=== PATIENT | female | born 1940 | race Caucasian/White ===

== ENCOUNTER → 2016-10-17 | Outpatient (CLI) | payer MEDICARE, BC ==
[~2016-10-17] MED LIST: ACIDOPHILIS PO; AMITRIPTYLINE150 MG PO; ASPIRIN 32325 MG/TAB PO; ASPIRIN 81M81 MG/TA2 PO; B-12 100 MCG PO; BACTRIM DS 8001 TAB PO; BENTYL 10MG10 MG/CAP PO; CALCIUM 500500 M1; CALCIUM 500500 M2 PO; CALCIUM 600MG+D1 TAB PO; CEPHALEXIN500 M1 PO; CRESTOR20 MG PO; DOXYCYCLINE 10100 MG PO; DOXYCYCLINE100 M2 PO; ELAVIL10 MG; ELAVIL10 MG PO; EPA FISH OIL1 SGL PO; FISH OIL1000 MG PO; FLAGYL500 MG PO; FLAXSEED OIL1 CAP PO; GERITOL COMPLET1 TA1 PO; LEVAQUIN 250MG250 MG PO; LEXAPRO; LIPITOR20 MG; LORTAB 5/500 501 TAB PO; MELOXICAM; MEVACOR; MULTIPLE VITAMI1 CAP PO; NABUMETONE500 MG PO; NAPROSYN500 MG PO; NATURAL E400 IU PO; NATURAL POTASS595 MG PO; NORCO 325 MG-51 TAB PO; NORCO 325 MG-7.1 TAB PO; OMNICEF 300MG300 MG PO; PAXIL 10MG10 MG PO; PEPTO BISMOL262 MG PO; PERCR 7.5 PO; PHENERGAN 25 TA25 MG PO; PHENERGAN25 MG RC; PLAVIX 75MG TAB75 MG PO; PRAVACHOL80 MG PO; PRILOSEC 20MG20 MG PO; PROTONIX20 MG PO; SERINE PO; SERTRALINE50 MG PO; TESSALON PERLE200 MG PO; TYLENOL 500MG500 MG PO; VITAMIN C500 MG PO; WELLBUTRIN XL300 M1 PO; ZANTAC 150MG T150 MG PO; ZITHROMAX 250M250 MG PO; ZOFRAN ODT8 MG PO; ZOLOFT 25MG25 MG PO; [UNRECOGNIZED DRUG - OTHER]
== END ==
LOC: MC.RAD 11:00
DX: Z12.31 Encounter for screening mammogram for malignant neoplasm of breast (principal)

== ENCOUNTER 2017-03-17 09:19 | Emergency (ER) | payer MEDICARE, BC ==
[~2017-03-17] VITALS: Ht 165.1 cm; Wt 72.7 kg
[~2017-03-17 09:19] MED LIST changes: -ACIDOPHILIS PO; -ASPIRIN 81M81 MG/TA2 PO; -B-12 100 MCG PO; -BACTRIM DS 8001 TAB PO; -BENTYL 10MG10 MG/CAP PO; -CALCIUM 600MG+D1 TAB PO; -CRESTOR20 MG PO; -EPA FISH OIL1 SGL PO; -FLAGYL500 MG PO; -GERITOL COMPLET1 TA1 PO; -NATURAL E400 IU PO; -NATURAL POTASS595 MG PO; -OMNICEF 300MG300 MG PO; -PAXIL 10MG10 MG PO; -PEPTO BISMOL262 MG PO; -TESSALON PERLE200 MG PO; -VITAMIN C500 MG PO; -WELLBUTRIN XL300 M1 PO; -ZANTAC 150MG T150 MG PO; -ZOFRAN ODT8 MG PO
[2017-03-17 09:31] VITALS: TEMP 97.9
[2017-03-17 10:32] LABS: BASO # 0.1 (0.0-0.2); BASO % 0.8 % (0.0-2.0); EOS # 0.2 (0.0-0.7); EOS % 1.9 % (0-4.0); GRAN # 8.5 (1.4-6.5); GRAN % 76.4 % (42.2-75.2); HEMATOCRIT 39.1 % (37.0-47.0); HEMOGLOBIN 13.3 g/dl (12.5-16.0); LYMPH # 1.4 (1.2-3.4); LYMPH % 12.1 % (20.0-51.0); MEAN CELL VOLUME 84 fl (80.0-100.0); MEAN CORPUSCULAR HEMOGLOBIN 29 pg (27.0-31.0); MEAN CORPUSCULAR HGB CONC 34 g/dl (33.0-37.0); MEAN PLATELET VOLUME 9.5 fl (7.4-10.4); MONO # 0.9 (0.1-0.6); MONO % 8.4 % (1.7-9.3); PLATELET COUNT 367 K/mm3 (130-400); RED BLOOD COUNT 4.63 M/mm3 (4.10-5.30); REDCELL DISTRIBUTION WIDTH-CV 13.1 % (11.5-14.5)
[2017-03-17 10:39] LABS: ALANINE AMINOTRANSFERASE 25 U/L (9-52); ALBUMIN 4.5 gm/dL (3.5-5.0); ALKALINE PHOSPHATASE 119 U/L (50-136); ANION GAP 11 mmol/L (7-16); AST,SGOT 25 U/L (15-37); BILIRUBIN,TOTAL 0.8 mg/dL (0.0-1.0); BLOOD UREA NITROGEN 9 mg/dL (7-17); CALCIUM 9.7 mg/dL (8.4-10.2); CARBON DIOXIDE 23 mmol/L (22-30); CHLORIDE 107 mmol/L (98-107); CREATININE, serum 0.74 mg/dL (0.52-1.25); GLUCOSE 103 mg/dL (74-106); SODIUM 140 mmol/L (137-145); TOTAL PROTEIN 7.7 gm/dL (6.4-8.2)
[2017-03-17] MEDS ORDERED: BENTYL 10MG10 MG/CAP PO (10:39)
[2017-03-17] MEDS ORDERED: NATURAL POTASS595 MG PO (10:40)
[2017-03-17 10:43] LABS: INR 1.1 (0.8-3.0); PROTHROMBIN TIME 12.6 SECONDS (9.7-12.8)
[2017-03-17 10:45] LABS: PARTIAL THROMBOPLASTIN TIME 31.3 SECONDS (26.0-37.0)
[2017-03-17 10:50] LABS: TROPONIN-I < 0.012 ng/mL (0.000-0.034)
[2017-03-17 10:51] LABS: COLLECTION METHOD CLEAN CATCH
[2017-03-17 11:01] LABS: PH 5 (5-8); SQUAMOUS EPITHELIAL 0-2 /hpf; URINE APPEARANCE Clear; URINE BACTERIA None Seen /hpf; URINE BILIRUBIN Negative (NEGATIVE); URINE BLOOD Negative (NEGATIVE); URINE COLOR Yellow; URINE GLUCOSE Negative (NEGATIVE); URINE KETONE Negative (NEGATIVE); URINE LEUKOCYTE ESTERASE Trace (NEGATIVE); URINE NITRATE Negative (NEGATIVE); URINE PROTEIN(semi-quant) Negative (NEGATIVE); URINE RBC 0-2 /hpf; URINE UROBILINOGEN Negative (NEGATIVE)
[2017-03-17] MEDS ORDERED: TESSALON PERLE200 MG PO (14:20)
[2017-03-17] MEDS ORDERED: CEPHALEXIN500 M1 PO (14:20)
[2017-03-17 15:06] VITALS: BP 158/91; PULSE 80
== END 2017-03-17 15:08 | disposition home or self-care (01) ==
LOC: COL.ER 09:19
PROVIDERS: Emergency Medicine
DX: J40 Bronchitis, not specified as acute or chronic (principal); B34.9 Viral infection, unspecified; Z86.73 Personal history of transient ischemic attack (TIA), and cerebral infarction without residual deficits; Z79.82 Long term (current) use of aspirin
CPT/HCPCS: J0696; J7030; Q9967

== ENCOUNTER → 2017-10-30 | Outpatient (CLI) | payer MEDICARE, BC ==
[~2017-10-30] MED LIST changes: +BENTYL 10MG10 MG/CAP PO; +NATURAL POTASS595 MG PO; +TESSALON PERLE200 MG PO
== END ==
LOC: MC.RAD 13:00
DX: Z12.31 Encounter for screening mammogram for malignant neoplasm of breast (principal)

== ENCOUNTER 2017-11-17 08:36 | Day surgery (SDC) | payer MEDICARE, BC ==
[~2017-11-17] VITALS: Ht 165.1 cm; Wt 72.6 kg
[2017-11-17 09:08] VITALS: BP 124/71; PULSE 91; TEMP 97.5
[2017-11-17] MEDS ORDERED: CRESTOR20 MG PO (09:15)
[2017-11-17] MEDS ORDERED: WELLBUTRIN XL300 M1 PO (09:17)
[2017-11-17] MEDS ORDERED: GERITOL COMPLET1 TA1 PO (09:19)
[2017-11-17] MEDS ORDERED: ACIDOPHILIS PO (09:20)
[2017-11-17] MEDS ORDERED: B-12 100 MCG PO ×2 (09:22→09:23)
[2017-11-17] MEDS ORDERED: PEPTO BISMOL262 MG PO (10:16)
[2017-11-17] MEDS ORDERED: ZANTAC 150MG T150 MG PO (10:17)
[2017-11-17 10:25] VITALS: BP 95/62; PULSE 72; TEMP 97.6
[2017-11-17 10:40] VITALS: BP 97/70; PULSE 62
[2017-11-17 10:55] VITALS: BP 98/52; PULSE 62
[2017-11-17 11:10] VITALS: BP 104/59; PULSE 63
== END 2017-11-17 12:05 | disposition home or self-care (01) ==
LOC: SDCO 08:36
DX: K51.40 Inflammatory polyps of colon without complications (principal); K57.30 Diverticulosis of large intestine without perforation or abscess without bleeding; K64.0 First degree hemorrhoids; R63.4 Abnormal weight loss; K29.30 Chronic superficial gastritis without bleeding; K44.9 Diaphragmatic hernia without obstruction or gangrene; Z80.0 Family history of malignant neoplasm of digestive organs; Z87.19 Personal history of other diseases of the digestive system; Z88.0 Allergy status to penicillin
CPT/HCPCS: OP; J2250; J2405; J3010; J7030

== ENCOUNTER 2018-02-21 08:12 | Emergency (ER) | payer MEDICARE, BC ==
[~2018-02-21] VITALS: Ht 162.6 cm; Wt 71.4 kg
[~2018-02-21 08:12] MED LIST changes: +ACIDOPHILIS PO; +B-12 100 MCG PO; +CRESTOR20 MG PO; +GERITOL COMPLET1 TA1 PO; +PEPTO BISMOL262 MG PO; +WELLBUTRIN XL300 M1 PO; +ZANTAC 150MG T150 MG PO
[2018-02-21 08:17] VITALS: BP 144/75; TEMP 97.9
[2018-02-21 08:37] LABS: BASO # 0.1 (0.0-0.2); BASO % 0.6 % (0.0-2.0); EOS # 0.1 (0.0-0.7); EOS % 1.5 % (0-4.0); GRAN # 6.2 (1.4-6.5); GRAN % 75.4 % (42.2-75.2); HEMATOCRIT 40.1 % (37.0-47.0); HEMOGLOBIN 13.7 g/dl (12.5-16.0); LYMPH # 1.1 (1.2-3.4); LYMPH % 13.7 % (20.0-51.0); MEAN CELL VOLUME 84 fl (80.0-100.0); MEAN CORPUSCULAR HEMOGLOBIN 29 pg (27.0-31.0); MEAN CORPUSCULAR HGB CONC 34 g/dl (33.0-37.0); MEAN PLATELET VOLUME 9.6 fl (7.4-10.4); MONO # 0.7 (0.1-0.6); MONO % 8.6 % (1.7-9.3); PLATELET COUNT 307 K/mm3 (130-400); RED BLOOD COUNT 4.79 M/mm3 (4.10-5.30); REDCELL DISTRIBUTION WIDTH-CV 12.8 % (11.5-14.5)
[2018-02-21 08:46] LABS: CALCIUM 10.3 mg/dL (8.4-10.2); CREATININE, serum 0.73 mg/dL (0.52-1.25)
[2018-02-21 09:05] LABS: COLLECTION METHOD CLEAN CATCH
[2018-02-21 09:24] LABS: MUCOUS Present /lpf; PH 5 (5-8); URINE APPEARANCE Cloudy; URINE BACTERIA Rare /hpf; URINE BILIRUBIN Negative (NEGATIVE); URINE BLOOD Negative (NEGATIVE); URINE COLOR Yellow; URINE GLUCOSE Negative (NEGATIVE); URINE KETONE Negative (NEGATIVE); URINE LEUKOCYTE ESTERASE 3+ (NEGATIVE); URINE NITRATE Negative (NEGATIVE); URINE PROTEIN(semi-quant) Negative (NEGATIVE); URINE RBC None Seen /hpf; URINE UROBILINOGEN Negative (NEGATIVE); URINE WBC 20-50 /hpf
[2018-02-21] MEDS ORDERED: OMNICEF 300MG300 MG PO (09:33)
[2018-02-21] MEDS ORDERED: ZOFRAN ODT8 MG PO (09:57)
[2018-02-21 10:15] VITALS: PULSE 79
== END 2018-02-21 10:15 | disposition home or self-care (01) ==
LOC: COL.ER 08:12
PROVIDERS: Emergency Medicine
DX: N39.0 Urinary tract infection, site not specified (principal); Z90.49 Acquired absence of other specified parts of digestive tract; Z90.710 Acquired absence of both cervix and uterus; Z90.89 Acquired absence of other organs; Z79.82 Long term (current) use of aspirin
CPT/HCPCS: A4216; J0696; J2270; J2405; J7030

== ENCOUNTER → 2018-05-13 | Outpatient (CLI) | payer MEDICARE, BC ==
[~2018-05-13] MED LIST changes: +OMNICEF 300MG300 MG PO; +ZOFRAN ODT8 MG PO
== END ==
LOC: COL.RAD 10:07
DX: R10.31 Right lower quadrant pain (principal); Z90.49 Acquired absence of other specified parts of digestive tract; Z90.710 Acquired absence of both cervix and uterus
CPT/HCPCS: Q9967

== ENCOUNTER 2018-06-10 07:33 | Emergency (ER) | payer MEDICARE, BC ==
[~2018-06-10] VITALS: Ht 165.1 cm; Wt 70.5 kg
[2018-06-10] MEDS ORDERED: PAXIL 10MG10 MG PO (08:17)
[2018-06-10] MEDS ORDERED: ASPIRIN 81M81 MG/TA2 PO (08:18)
[2018-06-10] MEDS ORDERED: WELLBUTRIN XL300 M1 PO (08:18)
[2018-06-10] MEDS ORDERED: EPA FISH OIL1 SGL PO (08:19)
[2018-06-10] MEDS ORDERED: MULTIPLE VITAMI1 CAP PO (08:19)
[2018-06-10] MEDS ORDERED: CALCIUM 600MG+D1 TAB PO (08:19)
[2018-06-10] MEDS ORDERED: NATURAL E400 IU PO (08:19)
[2018-06-10] MEDS ORDERED: VITAMIN C500 MG PO (08:19)
[2018-06-10] MEDS ORDERED: FLAGYL500 MG PO (08:28)
[2018-06-10] MEDS ORDERED: DOXYCYCLINE 10100 MG PO (08:28)
[2018-06-10 09:02] VITALS: BP 142/72; PULSE 74; TEMP 98.1
== END 2018-06-10 09:07 | disposition home or self-care (01) ==
LOC: COL.ER 07:33
DX: S51.831A Puncture wound without foreign body of right forearm, initial encounter (principal); L08.9 Local infection of the skin and subcutaneous tissue, unspecified; F32.9 Major depressive disorder, single episode, unspecified; E78.5 Hyperlipidemia, unspecified; Z88.0 Allergy status to penicillin; W55.01XA Bitten by cat, initial encounter; Y92.009 Unspecified place in unspecified non-institutional (private) residence as the place of occurrence of the external cause

== ENCOUNTER 2018-06-14 23:40 | Observation (INO) | payer MEDICARE, BC ==
[~2018-06-14] VITALS: Ht 162.6 cm; Wt 72.1 kg
[~2018-06-14 23:40] MED LIST changes: +ASPIRIN 81M81 MG/TA2 PO; +CALCIUM 600MG+D1 TAB PO; +EPA FISH OIL1 SGL PO; +FLAGYL500 MG PO; +NATURAL E400 IU PO; +PAXIL 10MG10 MG PO; +VITAMIN C500 MG PO
[2018-06-15 02:05] LABS: BASO # 0.1 (0.0-0.2); BASO % 1.2 % (0.0-2.0); EOS # 0.4 (0.0-0.7); EOS % 6.3 % (0-4.0); GRAN # 3.4 (1.4-6.5); GRAN % 51.8 % (42.2-75.2); HEMATOCRIT 34.5 % (37.0-47.0); HEMOGLOBIN 11.4 g/dl (12.5-16.0); LYMPH # 1.7 (1.2-3.4); LYMPH % 26.5 % (20.0-51.0); MEAN CELL VOLUME 86 fl (80.0-100.0); MEAN CORPUSCULAR HEMOGLOBIN 29 pg (27.0-31.0); MEAN CORPUSCULAR HGB CONC 33 g/dl (33.0-37.0); MEAN PLATELET VOLUME 10.2 fl (7.4-10.4); MONO # 0.9 (0.1-0.6); PLATELET COUNT 278 K/mm3 (130-400); REDCELL DISTRIBUTION WIDTH-CV 12.6 % (11.5-14.5)
[2018-06-15 02:18] LABS: ALBUMIN 3.7 gm/dL (3.5-5.0); BILIRUBIN,TOTAL 0.5 mg/dL (0.0-1.0); C-REACTIVE PROTEIN 1.3 mg/dL (0.0-0.9); CALCIUM 9.5 mg/dL (8.4-10.2); CREATININE, serum 0.85 (0.52-1.25); POTASSIUM 3.6 mmol/L (3.4-5.0); TOTAL PROTEIN 6.7 gm/dL (6.4-8.2)
--- NOTE | 2018-06-15 04:45 | NUR ---
Pt. arrived to the floor via wheelchair. Pt. is A&OX3, assessment complete. IV to lt. hand patent, IV fluids and antibiotics started at this time. Pt. denies pain. Area to rt. wrist is red, and swollen, no warmth noted. Pt. does report that the inner arm is itching, and rash noted. Pt. denies other needs, call light within reach.
[2018-06-15] MEDS ORDERED: BACTRIM DS 8001 TAB PO (05:30)
--- NOTE | 2018-06-15 05:43 | NUR ---
Pt. resting quietly at this time. Pt. denies needs.
[2018-06-15 06:29] VITALS: BP 132/70; PULSE 64; TEMP 97.6
--- NOTE | 2018-06-15 06:35 | NUR ---
awake resting in bed, bedside shift report received from MALATHI Shelby
--- NOTE | 2018-06-15 07:36 | NUR ---
appears to be sleeping, in bed with eyes closed, resp quiet and easy
[2018-06-15 08:17] VITALS: BP 128/65; PULSE 71; TEMP 98.8
--- NOTE | 2018-06-15 08:30 | NUR ---
resting in bed, c/o not feeling well and pain to right arm, medicated with hydrocodone 5mg 1 tab, right lower forearm near wriest is red and swollen, is marked and appears to be less than when first marked, also appears to have rash up the right arm, has ordered breakfast, up to bathroom independently and then back to bed
--- NOTE | 2018-06-15 09:24 | NUR ---
had breakfast and tolerated well, talking on phone
--- NOTE | 2018-06-15 09:31 | NUR ---
had breakfast and tolerated well and states pain pill relieved the pain, denies needs
--- NOTE | 2018-06-15 10:12 | NUR ---
Initial visit; Patient thanked Portfolio Lead for stopping and offering God's blessings.
--- NOTE | 2018-06-15 10:30 | NUR ---
Dr Kaur and care team in to see patient, IV fluids decreased to 100ml/hr,
[2018-06-15 11:21] VITALS: BP 123/77; PULSE 70; TEMP 98.1
--- NOTE | 2018-06-15 12:32 | NUR ---
has ordered lunch, continues to c/o some itching to right arm, medicated with benadryl 25mg po
--- NOTE | 2018-06-15 12:53 | NUR ---
sitting up in bed eating lunch
--- NOTE | 2018-06-15 13:20 | NUR ---
had lunch and now appears to be dozing, resp quiet and easy
--- NOTE | 2018-06-15 14:43 | NUR ---
SW attempted to meet with patient about discharge planning. Patient fell asleep while SW was speaking with her. SW will try back later.
--- NOTE | 2018-06-15 14:49 | NUR ---
oncology social work was into visit with pateint and she now appears to be padma
--- NOTE | 2018-06-15 15:54 | NUR ---
appeared to be sleeping about 15 minutes ago and now friends are in to visit and she is awake visiting with them
[2018-06-15 16:40] VITALS: BP 111/53; PULSE 65; TEMP 98.1
--- NOTE | 2018-06-15 17:47 | NUR ---
had supper and tolerated well, states she was still hungry, encouraged her to order somethng else to eat
--- NOTE | 2018-06-15 18:58 | NUR ---
bedside shift report given to MALATHI Marcial
--- NOTE | 2018-06-15 19:35 | NUR ---
Pt resting in bed. No distress noted. Respirations even and unlabored. Lungs clear. BS+. Bite to R wrist/forearm. Area around bite is red and edematous. Rash extending up R forearm that patient states is itchy. VSS. Afebrile. Pt states pain is 2/10 intermittently in R arm. Pt requesting sleeping pill at HS due to difficulty sleeping. No further needs noted.
[2018-06-15 19:36] VITALS: BP 110/52; PULSE 65; TEMP 98
--- NOTE | 2018-06-15 19:41 | NUR ---
Gilma COMER contacted about pts request for sleeping medication. Orders received for Melatonin.
--- NOTE | 2018-06-15 22:30 | NUR ---
Pt complaining of itching of rash on R FA. Gilma WOUND CARE SPECIALIST contacted. Orders received for PRN Benadryl.
--- NOTE | 2018-06-15 22:40 | NUR ---
Pts LW IV came out. Catheter tip intact. No signs of infiltration. New IV site intiated by Cindi SERVIN. 20g inserted in LFA with 1 attempt.
--- NOTE | 2018-06-15 22:57 | NUR ---
PRN medications for sleep and itching given to patient per request. No further needs noted.
[2018-06-16] VITALS (7 sets, daily range): BP systolic 98–136; BP diastolic 52–67; PULSE 63–80; TEMP 97.9–98.4
--- NOTE | 2018-06-16 05:30 | NUR ---
Pt sleeping this AM. Easily arousable. No complaints of pain. Has slept well throughout the shift. No needs this AM.
--- NOTE | 2018-06-16 06:50 | NUR ---
Report given to Genesis SERIVN. Pt reports resting well last night. No distress noted. IV Abx infusing to LFA IV. No needs noted.
[2018-06-16 06:56] LABS: BASO # 0.1 (0.0-0.2); BASO % 0.9 % (0.0-2.0); EOS # 0.4 (0.0-0.7); EOS % 6.4 % (0-4.0); GRAN # 3.1 (1.4-6.5); GRAN % 55.4 % (42.2-75.2); HEMOGLOBIN 10.6 g/dl (12.5-16.0); LYMPH # 1.4 (1.2-3.4); MEAN CELL VOLUME 89 fl (80.0-100.0); MEAN CORPUSCULAR HEMOGLOBIN 29 pg (27.0-31.0); MEAN CORPUSCULAR HGB CONC 32 g/dl (33.0-37.0); MEAN PLATELET VOLUME 10.2 fl (7.4-10.4); MONO # 0.6 (0.1-0.6); MONO % 11.1 % (1.7-9.3); PLATELET COUNT 246 K/mm3 (130-400); REDCELL DISTRIBUTION WIDTH-CV 12.6 % (11.5-14.5)
[2018-06-16 06:59] LABS: HEMATOCRIT 32.8 % (37.0-47.0)
[2018-06-16 07:08] LABS: CALCIUM 8.5 mg/dL (8.4-10.2); CREATININE, serum 0.72 (0.52-1.25); POTASSIUM 3.9 mmol/L (3.4-5.0)
--- NOTE | 2018-06-16 08:00 | NUR ---
resting in bed, full assessment completed, see interventions for further info, area on right forearm remains swollen but appears less red today, denies needs at this time
--- NOTE | 2018-06-16 09:06 | NUR ---
resting in bed, has had breakfast and tolerated well, denies needs at this time
--- NOTE | 2018-06-16 10:46 | NUR ---
up and about in room independently, states she starts to feel better and then now, right now just feeling weak and fatigued
--- NOTE | 2018-06-16 11:20 | NUR ---
Dr Kaur and care team in to see patient
--- NOTE | 2018-06-16 12:35 | NUR ---
sitting up in bed eating lunch, states she is now feeling much better and is hoping to go home later, explained physical therapy will still need to work with her and she verbalizes understanding
--- NOTE | 2018-06-16 13:15 | NUR ---
physical therapy in to work with patient
[2018-06-16] MEDS ORDERED: OMNICEF 300MG300 MG PO (14:19)
--- NOTE | 2018-06-16 15:00 | NUR ---
discharge instructions given to patient and verbalizes understanding, discharged ambulatory
== END 2018-06-16 15:00 | disposition home or self-care (01) ==
LOC: COL.ER 23:40 → SURG 06-15 03:03
PROVIDERS: Nurse Practitioner Family; Physician Assistant; ADMIT Hospitalist
DX: L03.113 Cellulitis of right upper limb (principal); W55.01XA Bitten by cat, initial encounter; E78.5 Hyperlipidemia, unspecified; F32.9 Major depressive disorder, single episode, unspecified; K58.0 Irritable bowel syndrome with diarrhea; Z90.710 Acquired absence of both cervix and uterus; Z90.49 Acquired absence of other specified parts of digestive tract; Z88.0 Allergy status to penicillin; Z88.1 Allergy status to other antibiotic agents; Z79.82 Long term (current) use of aspirin; Z86.73 Personal history of transient ischemic attack (TIA), and cerebral infarction without residual deficits
CPT/HCPCS: A4216; G0378; J0696; J1650; J2405; J7030

== ENCOUNTER → 2019-02-10 | Outpatient (CLI) | payer MEDICARE, BC ==
[~2019-02-10] MED LIST changes: +BACTRIM DS 8001 TAB PO
== END ==
LOC: MC.RAD 10:15
DX: Z12.31 Encounter for screening mammogram for malignant neoplasm of breast (principal)

== ENCOUNTER 2020-11-11 22:51 | Emergency (ER) | payer MEDICARE, BC ==
[~2020-11-11] VITALS: Ht 160 cm; Wt 66.4 kg
[2020-11-12 00:25] LABS: BASO # 0.1 (0.0-0.2); BASO % 0.6 % (0.0-2.0); EOS # 0.5 (0.0-0.7); EOS % 5.8 % (0-4.0); GRAN % 60.4 % (42.2-75.2); HEMATOCRIT 29.1 % (37.0-47.0); HEMOGLOBIN 9.5 g/dl (12.5-16.0); LYMPH # 1.5 (1.2-3.4); LYMPH % 17.8 % (20.0-51.0); MEAN CELL VOLUME 85 fl (80.0-100.0); MEAN CORPUSCULAR HEMOGLOBIN 28 pg (27.0-31.0); MEAN CORPUSCULAR HGB CONC 33 g/dl (33.0-37.0); MEAN PLATELET VOLUME 9.5 fl (7.4-10.4); MONO # 1.2 (0.1-0.6); PLATELET COUNT 298 K/mm3 (130-400); RED BLOOD COUNT 3.43 M/mm3 (4.10-5.30); REDCELL DISTRIBUTION WIDTH-CV 13.4 % (11.5-14.5)
[2020-11-12 00:31] LABS: C-REACTIVE PROTEIN 5.8 mg/dL (0.00-0.50); CALCIUM 9.3 mg/dL (8.4-10.2); CREATININE, serum 0.78 mg/dL (0.57-1.11); POTASSIUM 3.3 mmol/L (3.5-4.5)
[2020-11-12 01:21] LABS: ERYTHROCYTE SEDIMENTATION RATE 25 mm/hr (0-30)
[2020-11-12 01:36] VITALS: BP 154/89; PULSE 98; TEMP 97.9
== END 2020-11-12 01:20 | disposition home or self-care (01) ==
LOC: COL.ER 22:51
PROVIDERS: Emergency Medicine
DX: M25.561 Pain in right knee (principal); D72.829 Elevated white blood cell count, unspecified; R79.82 Elevated C-reactive protein (CRP)
CPT/HCPCS: J1650

== ENCOUNTER 2021-03-23 07:28 | Emergency (ER) | payer MEDICARE, BC ==
[~2021-03-23] VITALS: Ht 162.6 cm; Wt 67.7 kg
[2021-03-23 07:33] VITALS: TEMP 97.9
[2021-03-23] MEDS ORDERED: DOXYCYCLINE 10100 MG PO (07:46)
[2021-03-23 07:56] VITALS: BP 121/76; PULSE 71
== END 2021-03-23 07:57 | disposition home or self-care (01) ==
LOC: COL.ER 07:28
DX: S51.851A Open bite of right forearm, initial encounter (principal); F32.A Depression, unspecified; E78.5 Hyperlipidemia, unspecified; Z79.899 Other long term (current) drug therapy; W55.01XA Bitten by cat, initial encounter

== ENCOUNTER 2021-10-13 09:28 | Emergency (ER) | payer MEDICARE, BC ==
[~2021-10-13] VITALS: Ht 162.6 cm; Wt 69.1 kg
[2021-10-13 09:45] VITALS: BP 145/102; PULSE 87; TEMP 98.3
== END 2021-10-13 11:36 | disposition home or self-care (01) ==
LOC: COL.ER 09:28
DX: B34.9 Viral infection, unspecified (principal); Z20.822 Contact with and (suspected) exposure to COVID-19

== ENCOUNTER 2023-11-17 15:49 | Emergency (ER) | payer MEDICARE, BC ==
[~2023-11-17] VITALS: Ht 162.6 cm; Wt 63.6 kg
[2023-11-17 16:14] VITALS: TEMP 98.3
[2023-11-17] MEDS ORDERED: Morphine 4 MG/ML VIAL IV ONE (18:00)
[2023-11-17 18:23] LABS: HEMOGLOBIN 10.5 g/dl (12.5-16.0); MEAN CELL VOLUME 84 fl (80.0-100.0); MEAN CORPUSCULAR HEMOGLOBIN 27 pg (27-31); MEAN CORPUSCULAR HGB CONC 32 g/dl (33.0-37.0); MEAN PLATELET VOLUME 9.1 fl (7.4-10.4); PLATELET COUNT 371 K/mm3 (130-400); RED BLOOD COUNT 3.89 M/mm3 (4.10-5.30); REDCELL DISTRIBUTION WIDTH-CV 15.3 % (11.5-14.5)
[2023-11-17 18:38] LABS: ALBUMIN 3.6 g/dL (3.4-4.8); BILIRUBIN,TOTAL 2.3 mg/dL (0.2-1.2); C-REACTIVE PROTEIN 3.64 mg/dL (0.00-0.50); CALCIUM 9.9 mg/dL (8.4-10.2); CREATININE, serum 0.81 mg/dL (0.57-1.11); POTASSIUM 3.5 mEq/L (3.5-4.5); TOTAL PROTEIN 7.1 g/dl (6.2-8.1)
[2023-11-17 18:42] LABS: HEMATOCRIT 32.8 % (37.0-47.0)
[2023-11-17 18:53] LABS: BAND 1 % (0-10); EOSINOPHIL 13 % (0-4); LYMPHOCYTE 18 % (20.0-51.0); NEUTROPHILS 62 % (42.0-75.2)
[2023-11-17 18:54] LABS: OVALOCYTES 1+
[2023-11-17] MEDS ORDERED: Cephalexin 500 MG CAP PO ONE (19:45)
[2023-11-17] MEDS ORDERED: oxyCODONE 5 MG TAB PO ONE (19:45)
[2023-11-17] MEDS ORDERED: CEPHALEXIN500 M1 PO (19:48)
[2023-11-17 20:21] VITALS: BP 146/67; PULSE 93
== END 2023-11-17 20:21 | disposition home or self-care (01) ==
LOC: COL.ER 15:49
PROVIDERS: Nurse Practitioner
DX: G89.18 Other acute postprocedural pain (principal); M25.562 Pain in left knee; L03.116 Cellulitis of left lower limb; Z88.1 Allergy status to other antibiotic agents
CPT/HCPCS: A6197; J2270